=== PATIENT | female | born 1965 | race Two or more races ===

== ENCOUNTER → 2016-09-20 | Outpatient (CLI) | payer OTHER ==
--- NOTE | 2016-09-20 10:38 | RAD ---
Indication: Back pain. Time of exam 10:28 AM Curvature and alignment of the thoracic spine is normal. Vertebral body heights are well-maintained. No acute compression fracture is seen. There is generalized degenerative disc disease with variable disc space narrowing and marginal spurring. Pedicles and paraspinous line are intact. Impression: Thoracic spondylosis. No acute bony abnormality is detected.
== END | disposition home or self-care (01) ==
LOC: DXRADRC 10:20
PROVIDERS: ATTEND Physician Assistant Medical
DX: M47.894 Other spondylosis, thoracic region (principal); M51.34 Other intervertebral disc degeneration, thoracic region
CPT/HCPCS: 72072